=== PATIENT | female | born 1940 | race Caucasian/White ===

== ENCOUNTER 2019-02-06 20:42 | Observation (INO) ==
[2019-02-06 22:49] LABS: Basophils # 0.1 10*3/uL (0.0-0.2); Basophils % 0.6 % (0.0-0.8); Eosinophils # 0.3 10*3/uL (0.0-0.87); Eosinophils % 3.7 % (0.00-10.9); Hematocrit 42.8 VOL% (35.7-47.0); Hemoglobin 13.6 GM/DL (12.0-16.0); Immature Granulocytes % 0.2 %; Immature Granulocytes Absolute 0.02 #; Mean Corpuscular HGB Conc 31.8 GM/DL (32-36); Mean Corpuscular Hemoglobin 29 PG (27-34); Mean Corpuscular Volume 92.2 FL (87-102); Mean Platelet Volume 10.8 FL (9.6-12.0); Monocytes # 0.6 10*3/uL (0.11-0.8); Neutrophils # 5.4 10*3/uL (1.4-7.4); Neutrophils % 64.5 % (38.7-73.9); Platelet Count 280 T/CUMM (130-400); Red Blood Count 4.64 MC/CUMM (3.8-5.5); Red Cell Distribution Width 13.3 % (9.3-17.3); White Blood Count 8.3 T/CUMM (4-12)
[2019-02-06 23:04] LABS: Alanine Aminotransferase 18 U/L (13-56); Albumin 3.6 G/DL (3.4-5.0); Alkaline Phosphatase 89 U/L (45-117); Aspartate Amino Transferase 17 U/L (0-37); Bilirubin,Total < 0.39 MG/DL (0.2-1.0); Blood Urea Nitrogen 23 MG/DL (7-18); Calcium 9.1 MG/DL (8.5-10.1); Glucose 115 MG/DL (74-106); Osmolality,Calculated 285.3 MOS/KG (273-304); Potassium 3.8 MMOL/L (3.5-5.1); Sodium 141 MMOL/L (136-145); Total Protein 7.5 G/DL (6.4-8.3)
[2019-02-06 23:06] LABS: INR 0.9; PT Patient Result 10.1 SECS
[2019-02-06 23:51] LABS: Apearance,Urine Slightly Hazy (Clear); Bacteria,Urine Many /HPF (Few); Bilirubin,Urine Negative (Negative); Blood, Urine Negative (Negative); Glucose,Urine (UA) Negative (Negative); Hyaline Casts,Urine 31 /LPF (0-3); Ketones,Urine Negative (Negative); Nitrite,Urine Positive (Negative); Protein,Urine Negative; RBC,Urine 11 /HPF (0-4); Squamous Epithelial Cell,Urine Occasional /HPF (0-10); Urine Color Yellow (Yellow); Urine Urobilinogen < 2.0 EU/DL (0.2-1.0); WBC,Urine 39 /HPF (0-6)
[2019-02-07] MEDS ORDERED: cefTRIAXone 250 MG VIAL IV STA (01:12)
[2019-02-07] MEDS ORDERED: diphenhydrAMINE CAP 25 MG CAPSULE PO PRN (01:39)
[2019-02-07] MEDS ORDERED: ACETAMINOPHEN 325 MG TABLET PO PRN (01:39)
[2019-02-07] MEDS ORDERED: NICOTINE 21 MG/24 HR PATCH TRANSDERM PRN (01:39)
[2019-02-07] MEDS ORDERED: guaiFENesin/DM ER 600-30 MG TABLET PO PRN (01:39)
[2019-02-07] MEDS ORDERED: BISACODYL 5 MG TABLET PO PRN (01:39)
[2019-02-07] MEDS ORDERED: ONDANSETRON 4 MG/2 ML VIAL IV PRN (01:39)
[2019-02-07] MEDS ORDERED: MORPHINE 4 MG/1 ML VIAL IV PRN (01:39)
[2019-02-07] MEDS ORDERED: cefTRIAXone 1,000 MG VIAL ONE (01:55)
[2019-02-07] MEDS: SODIUM CHLORIDE 0.9% 1,000 ML IV SCH ×2 (03:31→19:30)
[2019-02-07] MEDS: cefTRIAXone 1,000 MG in SYRINGE 1 EACH IV SCH ×3 (04:47→13:06)
[2019-02-07 05:13] LABS: Basophils # 0.1 10*3/uL (0.0-0.2); Basophils % 0.7 % (0.0-0.8); Eosinophils # 0.3 10*3/uL (0.0-0.87); Hematocrit 40.6 VOL% (35.7-47.0); Hemoglobin 12.9 GM/DL (12.0-16.0); Immature Granulocytes % 0.4 %; Immature Granulocytes Absolute 0.03 #; Lymphocytes # 1.8 10*3/uL (1.4-4.0); Lymphocytes % 25.6 % (21.3-54.2); Mean Corpuscular HGB Conc 31.8 GM/DL (32-36); Mean Corpuscular Hemoglobin 29 PG (27-34); Mean Corpuscular Volume 91.9 FL (87-102); Mean Platelet Volume 10.1 FL (9.6-12.0); Monocytes # 0.7 10*3/uL (0.11-0.8); Monocytes % 10.2 % (1.7-12.7); Neutrophils # 4.1 10*3/uL (1.4-7.4); Neutrophils % 59.1 % (38.7-73.9); Platelet Count 218 T/CUMM (130-400); Red Blood Count 4.42 MC/CUMM (3.8-5.5)
[2019-02-07] MEDS: PANTOPRAZOLE 40 MG TABLET PO SCH (09:11)
[2019-02-07] MEDS: BISOPROLOL 5 MG TABLET PO SCH (09:11)
[2019-02-07] MEDS: amLODIPine 5 MG TABLET PO SCH (09:11)
[2019-02-08] MEDS: cefTRIAXone 1,000 MG in SYRINGE 1 EACH IV SCH (02:16)
[2019-02-08] MEDS: PANTOPRAZOLE 40 MG TABLET PO SCH (09:33)
[2019-02-08] MEDS: amLODIPine 5 MG TABLET PO SCH (09:33)
[2019-02-08] MEDS: BISOPROLOL 5 MG TABLET PO SCH (09:33)
[2019-02-08 12:24] VITALS: BP 145/71
[2019-02-09] MEDS ORDERED: LEVOFLOXACIN 500 MG TABLET PO SCH (09:00)
== END 2019-02-08 13:52 | disposition home or self-care (01) ==
LOC: N.ED 20:42 → N.EDINP 20:42 → N.2E 02-07 02:58
PROVIDERS: ADMIT Internal Medicine Cardiovascular Disease; ATTEND Internal Medicine Cardiovascular Disease